=== PATIENT | male | born 1985 | race Caucasian/White ===

== ENCOUNTER 2021-07-20 02:32 | Emergency (ER) | payer MEDICAID ==
[~2021-07-20] VITALS: Ht 160 cm; Wt 64.4 kg
[2021-07-20 02:41] VITALS: BP 122/71
--- NOTE | 2021-07-20 02:54 | NUR ---
PT TO LOBBY
--- NOTE | 2021-07-20 04:08 | NUR ---
pt ambulated to bed 3
[2021-07-20] MEDS ORDERED: ATA25 PO (04:25)
--- NOTE | 2021-07-20 04:40 | NUR ---
cleared for dc with Dr. Lind, instructions reinforced to patient and family member.
[2021-07-20 04:42] VITALS: BP 132/78
== END 2021-07-20 04:42 | disposition home or self-care (01) ==
LOC: MED 02:32
DX: F41.9 Anxiety disorder, unspecified (principal)
CPT/HCPCS: 93005; 99283

== ENCOUNTER 2021-08-03 21:54 | Emergency (ER) | payer MEDICAID ==
[~2021-08-03] VITALS: Ht 162.6 cm; Wt 64.4 kg
[~2021-08-03 21:54] MED LIST: ATA25 PO
[2021-08-03 22:00] VITALS: BP 135/78
--- NOTE | 2021-08-03 22:12 | NUR ---
pt ambulatory to bed 11
--- NOTE | 2021-08-03 22:35 | NUR ---
Dr. Diaz at bedside to exam patient.
[2021-08-03] MEDS ORDERED: LORazepam 1 MG TAB PO ONE (23:00)
--- NOTE | 2021-08-03 23:04 | NUR ---
LAB AT BEDSIDE
--- NOTE | 2021-08-03 23:11 | NUR ---
PT TAKING TO CT VIA WHEELCHAIR
[2021-08-03 23:13] LABS: BASOPHILS % (AUTO) 0.4 % (0.0-2.0); EOSINOPHILS # (AUTO) 0.1 K/uL (0-0.4); EOSINOPHILS % (AUTO) 1.2 % (0.0-4.0); HEMATOCRIT 42.7 % (36-52); HEMOGLOBIN 14.5 g/dL (12.0-18.0); LYMPHOCYTES # (AUTO) 2.4 K/uL (2.0-11.5); LYMPHOCYTES % (AUTO) 22.6 % (20.5-51.1); MEAN CORPUSCULAR HEMOGLOBIN 29 pg (27-31); MEAN CORPUSCULAR HGB CONC 34 g/dL (33-37); MEAN CORPUSCULAR VOLUME 85.3 fL (80-94); MONOCYTES # (AUTO) 0.8 K/uL (0.8-1.0); MONOCYTES % (AUTO) 7.6 % (1.7-9.3); NEUTROPHILS # (AUTO) 7.2 K/uL (1.8-7.7); NEUTROPHILS % (AUTO) 68.2 % (42.2-75.2); PLATELET COUNT (AUTO) 242 K/uL (140-450); RED CELL DISTRIBUTION WIDTH 13.8 % (11.6-13.7); WHITE BLOOD COUNT (AUTO) 10.6 K/uL (4.8-10.8)
[2021-08-03 23:51] LABS: CARBON DIOXIDE 26.7 mmol/L (21-32); CREATININE 0.9 mg/dL (0.6-1.3); POTASSIUM 3.7 mmol/L (3.5-5.1)
[2021-08-04 00:32] LABS: BARBITURATE, URINE NEGATIVE ng/ml (NEG <=200); BENZODIAZEPINE, URINE NEGATIVE ng/mL (NEG <=200); CANNABINOID, URINE NEGATIVE ng/mL (NEG <=50); COCAINE, URINE NEGATIVE ng/mL (NEG <=300); OPIATE, URINE NEGATIVE ng/mL (NEG <=2000); PHENCYCLIDINE SCREEN,URINE NEGATIVE ng/mL (NEG <=25)
[2021-08-04 00:56] VITALS: BP 135/78
--- NOTE | 2021-08-04 00:56 | NUR ---
Patient discharged with v/s stable. Written and verbal after care instructions given and explained. Patient verbalized understanding. Ambulatory with steady gait. All questions addressed prior to discharge. Advised to follow up with PMD.
== END 2021-08-04 00:56 | disposition home or self-care (01) ==
LOC: MED 21:54
DX: F41.9 Anxiety disorder, unspecified (principal); Z90.49 Acquired absence of other specified parts of digestive tract; Z79.899 Other long term (current) drug therapy
CPT/HCPCS: 36415; 70450; 80048; 80305; 85025; 93005; 99285

== ENCOUNTER 2021-09-23 13:23 | Emergency (ER) | payer MEDICAID ==
[~2021-09-23] VITALS: Ht 162.6 cm; Wt 64.6 kg
[2021-09-23 13:36] VITALS: BP 135/82
--- NOTE | 2021-09-23 14:10 | NUR ---
walked in c/o left sided cp onset 12pm today during lunch. denies any cardiac hx. aaox4, ambulatory, vss. states accompanied by nausea and dizziness. blood drawn, ekg done at bedside, on athletic monitor.
--- NOTE | 2021-09-23 14:16 | NUR ---
RAD AT BEDSIDE
[2021-09-23 14:27] LABS: BASOPHILS % (AUTO) 0.3 % (0.0-2.0); EOSINOPHILS % (AUTO) 0.5 % (0.0-4.0); HEMATOCRIT 43.2 % (36-52); HEMOGLOBIN 14.7 g/dL (12.0-18.0); LYMPHOCYTES # (AUTO) 1.1 K/uL (2.0-11.5); LYMPHOCYTES % (AUTO) 18.4 % (20.5-51.1); MEAN CORPUSCULAR HEMOGLOBIN 29 pg (27-31); MEAN CORPUSCULAR HGB CONC 34 g/dL (33-37); MEAN CORPUSCULAR VOLUME 84.6 fL (80-94); MONOCYTES # (AUTO) 0.6 K/uL (0.8-1.0); MONOCYTES % (AUTO) 10.5 % (1.7-9.3); NEUTROPHILS # (AUTO) 4.2 K/uL (1.8-7.7); NEUTROPHILS % (AUTO) 70.3 % (42.2-75.2); PLATELET COUNT (AUTO) 255 K/uL (140-450); RED CELL DISTRIBUTION WIDTH 13.9 % (11.6-13.7); WHITE BLOOD COUNT (AUTO) 5.9 K/uL (4.8-10.8)
[2021-09-23 15:29] LABS: ANION GAP 14.1 (8-16); CARBON DIOXIDE 26.7 mmol/L (21-32); CREATININE 0.9 mg/dL (0.6-1.3); POTASSIUM 3.8 mmol/L (3.5-5.1)
[2021-09-23 15:43] VITALS: BP 131/83
== END 2021-09-23 15:43 | disposition home or self-care (01) ==
LOC: MED 13:23
DX: F41.9 Anxiety disorder, unspecified (principal); I10 Essential (primary) hypertension; Z90.49 Acquired absence of other specified parts of digestive tract; Z98.890 Other specified postprocedural states
CPT/HCPCS: 36415; 71045; 80048; 84484; 85025; 93005; 99285

== ENCOUNTER 2021-11-22 18:00 | Emergency (ER) | payer MEDICAID ==
[~2021-11-22] VITALS: Ht 162.6 cm; Wt 67.1 kg
[2021-11-22 18:17] VITALS: BP 131/74
[2021-11-22] MEDS ORDERED: KETOROLAC 30 MG/ML VIAL IM ONE (19:15)
[2021-11-22] MEDS ORDERED: NAPR-1704 PO (19:22)
--- NOTE | 2021-11-22 19:40 | NUR ---
Patient discharged with v/s stable. Written and verbal after care instructions given [facility] [place] and explained. Patient alert, oriented and verbalized understanding of instructions. Ambulatory with steady gait. All questions addressed prior to discharge. ID band removed. Patient advised to follow up with PMD. Rx of NAPROXEN given.
[2021-11-22 19:41] VITALS: BP 128/72
== END 2021-11-22 19:39 | disposition home or self-care (01) ==
LOC: MED 18:00
DX: G44.209 Tension-type headache, unspecified, not intractable (principal); M54.2 Cervicalgia; F41.9 Anxiety disorder, unspecified; Z90.49 Acquired absence of other specified parts of digestive tract; Z79.899 Other long term (current) drug therapy
CPT/HCPCS: 96372; 99283; J1885

== ENCOUNTER 2021-12-11 08:02 | Emergency (ER) | payer MEDICAID ==
[~2021-12-11] VITALS: Ht 162.6 cm; Wt 65.5 kg
[~2021-12-11 08:02] MED LIST changes: +NAPR-1704 PO
[2021-12-11 08:07] VITALS: BP 139/73
--- NOTE | 2021-12-11 08:10 | NUR ---
PT AMB TO BED 4.
--- NOTE | 2021-12-11 08:31 | NUR ---
36YO MALE PT C/O INCONSISTENT TIGHT 7/10 CHEST PAIN XLASTNIGHT. STATES EPISODES OF 10MIN DURATION W/O RADIATION. NOTES NUMBING IN R ARM, DENIES AT THIS TIME OR LOSS OF SENSATION. MILD RELIEF AFTER TAKING ANXIETY RX. STATES PREVIOUS S/S AND TOLD IT WAS STRESS RELATED. DENIES N/V/D , SOB , FEVR OR CHILLS. PT AAOX4, NO VISIBLE DISTRESS. RESPIRATIONS EVEN AND UNLABORED. 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 GREEK SPEAKING. HX: ANXIETY NKA
--- NOTE | 2021-12-11 08:32 | NUR ---
MD LOBATO AT BEDSIDE FOR EVALUATION
[2021-12-11 08:56] VITALS: BP 128/85
--- NOTE | 2021-12-11 08:56 | NUR ---
Patient discharged with v/s stable. Written and verbal after care instructions FOR PANIC ATTACK AND NON SPECIFIC CHEST PAIN given and explained. Patient verbalized understanding. Ambulatory with steady gait. All questions addressed prior to discharge. Advised to follow up with PMD.
--- NOTE | 2021-12-11 09:51 | NUR ---
The patient's care was reviewed and supervised by ED Agency Nurse 9, RN, RN.
== END 2021-12-11 09:51 | disposition home or self-care (01) ==
LOC: MED 08:02
DX: R07.9 Chest pain, unspecified (principal); F41.9 Anxiety disorder, unspecified; R51.9 Headache, unspecified; Z79.899 Other long term (current) drug therapy
CPT/HCPCS: 93005; 99283